=== PATIENT | male | born 1990 | race Caucasian/White ===

== ENCOUNTER 2024-05-01 02:00 | Emergency (ER) | payer BC, MEDICAID ==
[~2024-05-01] VITALS: Ht 177.8 cm; Wt 95.3 kg
[2024-05-01 02:00] VITALS: BP 136/85; PULSE 94; RESP 18; TEMP 98.1; O2SAT 100
[2024-05-01 02:25] VITALS: BP 136/85; PULSE 94; RESP 16; TEMP 97.9; O2SAT 100
== END 2024-05-01 05:20 | disposition left against medical advice (07) ==
LOC: MED 02:00
DX: S01.112A Laceration without foreign body of left eyelid and periocular area, initial encounter (principal); S10.91XA Abrasion of unspecified part of neck, initial encounter; Z88.0 Allergy status to penicillin; Z53.21 Procedure and treatment not carried out due to patient leaving prior to being seen by health care provider; Y08.89XA Assault by other specified means, initial encounter; Y93.89 Activity, other specified; Y92.89 Other specified places as the place of occurrence of the external cause; Y99.8 Other external cause status